=== PATIENT | male | born 1960 | race Caucasian/White ===

== ENCOUNTER 2020-06-26 20:32 | Inpatient (IN) | payer OTHER, SELFPAY ==
[~2020-06-26] VITALS: Ht 188 cm; Wt 101.3 kg
[2020-06-26 20:55] VITALS: Ht 188 cm; Wt 101.3 kg
[2020-06-26 22:08] LABS: BASOPHIL % 0.2 % (0.2-1.5)
[2020-06-26 22:34] LABS: PLATELET COUNT 117 x10^3mcL (152-348)
[2020-06-26 22:39] LABS: CALCIUM 8.1 mg/dL (8.5-10.1); CARBON DIOXIDE 25.1 mmol/L (21-32); CHLORIDE SERUM 98 mmol/L (98-107); CREATININE SERUM 1.2 mg/dL (0.7-1.3); GFR1 > 60 mL/min; GLUCOSE SERUM 127 mg/dL (74-106); POTASSIUM SERUM 4.1 mmol/L (3.5-5.1); SODIUM SERUM 135 mmol/L (136-145)
[2020-06-26 22:58] LABS: rbc morphology (normal/abnorm) ABNORMAL (NORMAL)
[2020-06-26 23:07] LABS: ALKALINE PHOSPHATASE 48 U/L (46-116); ALT/SGPT 41 U/L (16-63); AST/SGOT 47 U/L (15-37); BILIRUBIN TOTAL 0.8 mg/dL (0.20-1.00); C REACTIVE PROTEIN 8.9 mg/dL (<=0.9); LACTIC DEHYDROGENASE (LDH) 310 U/L (100-190); TOTAL PROTEIN, SERUM 7.1 g/dL (6.4-8.2)
[2020-06-26 23:10] LABS: ALBUMIN 3.1 g/dL (3.4-5.0)
[2020-06-27 02:44] LABS: microscopic required? YES; urine erythrocyte NEGATIVE (NEGATIVE)
[2020-06-27 04:58] VITALS: BP 114/73
[2020-06-27 08:46] VITALS: BP 115/73
[2020-06-27 09:08] LABS: BASOPHIL % 0.1 % (0.2-1.5); RED CELL DISTRIBUTION WIDTH 13.2 % (12.1-16.2)
[2020-06-27 09:15] LABS: CALCIUM 8.5 mg/dL (8.5-10.1); CARBON DIOXIDE 28.9 mmol/L (21-32); CHLORIDE SERUM 100 mmol/L (98-107); CREATININE SERUM 1.1 mg/dL (0.7-1.3); GFR1 > 60 mL/min; GLUCOSE SERUM 139 mg/dL (74-106); POTASSIUM SERUM 5.1 mmol/L (3.5-5.1); SODIUM SERUM 138 mmol/L (136-145)
[2020-06-27 11:09] LABS: PLATELET COUNT 115 x10^3mcL (152-348)
[2020-06-27 11:51] VITALS: BP 126/74
[2020-06-27 16:52] VITALS: BP 127/80
[2020-06-27 22:00] VITALS: BP 133/78
[2020-06-28 05:12] VITALS: BP 115/76
[2020-06-28 07:44] LABS: BASOPHIL % 0.2 % (0.2-1.5); PLATELET COUNT 144 x10^3mcL (152-348); RED CELL DISTRIBUTION WIDTH 13.2 % (12.1-16.2)
[2020-06-28 08:05] LABS: CALCIUM 8.2 mg/dL (8.5-10.1); CARBON DIOXIDE 27.1 mmol/L (21-32); CHLORIDE SERUM 103 mmol/L (98-107); CREATININE SERUM 1.1 mg/dL (0.7-1.3); GFR1 > 60 mL/min; GLUCOSE SERUM 124 mg/dL (74-106); MAGNESIUM 2.3 mg/dL (1.8-2.4); POTASSIUM SERUM 4.4 mmol/L (3.5-5.1); SODIUM SERUM 139 mmol/L (136-145)
[2020-06-28 08:34] VITALS: BP 135/79
[2020-06-28 12:19] VITALS: BP 130/78
[2020-06-28 15:59] VITALS: BP 148/76
[2020-06-28 18:58] VITALS: BP 148/76
[2020-06-28 21:00] VITALS: BP 129/79
[2020-06-29 05:02] VITALS: BP 111/70
[2020-06-29 07:48] LABS: BASOPHIL % 0.3 % (0.2-1.5); PLATELET COUNT 169 x10^3mcL (152-348); RED CELL DISTRIBUTION WIDTH 12.8 % (12.1-16.2)
[2020-06-29 08:32] LABS: ALKALINE PHOSPHATASE 58 U/L (46-116); ALT/SGPT 34 U/L (16-63); AST/SGOT 35 U/L (15-37); BILIRUBIN DIRECT 0.15 mg/dL (0.0-0.2); BILIRUBIN TOTAL 0.4 mg/dL (0.20-1.00); CALCIUM 7.9 mg/dL (8.5-10.1); CARBON DIOXIDE 28.9 mmol/L (21-32); CHLORIDE SERUM 106 mmol/L (98-107); GFR1 > 60 mL/min; GLUCOSE SERUM 95 mg/dL (74-106); MAGNESIUM 2.1 mg/dL (1.8-2.4); PHOSPHOROUS 4.1 mg/dL (2.5-4.9); POTASSIUM SERUM 4.3 mmol/L (3.5-5.1); SODIUM SERUM 141 mmol/L (136-145); TOTAL PROTEIN, SERUM 6.4 g/dL (6.4-8.2)
[2020-06-29 08:37] LABS: ALBUMIN 2.4 g/dL (3.4-5.0)
[2020-06-29 09:17] VITALS: BP 121/73
[2020-06-29 12:17] VITALS: BP 137/86
[2020-06-29 17:30] VITALS: BP 129/77
[2020-06-29 20:58] VITALS: BP 109/54
[2020-06-30 05:26] VITALS: BP 124/81
[2020-06-30 06:45] LABS: BASOPHIL % 0.3 % (0.2-1.5); PLATELET COUNT 188 x10^3mcL (152-348); RED CELL DISTRIBUTION WIDTH 12.9 % (12.1-16.2)
[2020-06-30 07:30] LABS: CALCIUM 7.9 mg/dL (8.5-10.1); CARBON DIOXIDE 29.6 mmol/L (21-32); CHLORIDE SERUM 105 mmol/L (98-107); CREATININE SERUM 1.1 mg/dL (0.7-1.3); GFR1 > 60 mL/min; GLUCOSE SERUM 88 mg/dL (74-106); MAGNESIUM 2.1 mg/dL (1.8-2.4); PHOSPHOROUS 3.8 mg/dL (2.5-4.9); POTASSIUM SERUM 4.3 mmol/L (3.5-5.1); SODIUM SERUM 139 mmol/L (136-145)
[2020-06-30 08:35] LABS: ALBUMIN 2.4 g/dL (3.4-5.0); BILIRUBIN DIRECT 0.12 mg/dL (0.0-0.2); BILIRUBIN TOTAL 0.5 mg/dL (0.20-1.00); TOTAL PROTEIN, SERUM 6.3 g/dL (6.4-8.2)
[2020-06-30 09:03] VITALS: BP 132/80
[2020-06-30 12:36] VITALS: BP 133/80
[2020-06-30 12:38] LABS: rbc morphology (normal/abnorm) NORMAL (NORMAL)
[2020-06-30 16:58] VITALS: BP 129/82
[2020-06-30 21:09] VITALS: BP 135/79
[2020-07-01 04:51] VITALS: BP 101/65
[2020-07-01 08:44] VITALS: BP 123/80
[2020-07-01 10:19] LABS: ALBUMIN 2.5 g/dL (3.4-5.0); BILIRUBIN DIRECT 0.13 mg/dL (0.0-0.2); BILIRUBIN TOTAL 0.6 mg/dL (0.20-1.00); TOTAL PROTEIN, SERUM 6.4 g/dL (6.4-8.2)
[2020-07-01 10:36] LABS: CARBON DIOXIDE 26.4 mmol/L (21-32); CHLORIDE SERUM 104 mmol/L (98-107); CREATININE SERUM 1.1 mg/dL (0.7-1.3); GFR1 > 60 mL/min; GLUCOSE SERUM 89 mg/dL (74-106); MAGNESIUM 2.1 mg/dL (1.8-2.4); PHOSPHOROUS 3.4 mg/dL (2.5-4.9); POTASSIUM SERUM 4.2 mmol/L (3.5-5.1); SODIUM SERUM 139 mmol/L (136-145)
[2020-07-01 12:01] VITALS: BP 114/69
[2020-07-01 14:35] LABS: BASOPHIL % 0.8 % (0.2-1.5); PLATELET COUNT 204 x10^3mcL (152-348)
[2020-07-01 14:45] LABS: rbc morphology (normal/abnorm) NORMAL (NORMAL)
[2020-07-01 16:41] VITALS: BP 119/81
[2020-07-01 21:20] VITALS: BP 115/70
[2020-07-02 05:42] VITALS: BP 119/72
[2020-07-02 09:17] VITALS: BP 113/65
[2020-07-02 09:17] LABS: CALCIUM 8.5 mg/dL (8.5-10.1); CARBON DIOXIDE 27.6 mmol/L (21-32); CHLORIDE SERUM 103 mmol/L (98-107); CREATININE SERUM 1.1 mg/dL (0.7-1.3); GFR1 > 60 mL/min; GLUCOSE SERUM 85 mg/dL (74-106); MAGNESIUM 2.1 mg/dL (1.8-2.4); PHOSPHOROUS 3.2 mg/dL (2.5-4.9); POTASSIUM SERUM 4.2 mmol/L (3.5-5.1); SODIUM SERUM 138 mmol/L (136-145)
[2020-07-02 10:27] LABS: BILIRUBIN DIRECT 0.12 mg/dL (0.0-0.2); BILIRUBIN TOTAL 0.68 mg/dL (0.20-1.00); TOTAL PROTEIN, SERUM 6.5 g/dL (6.4-8.2)
[2020-07-02 10:29] LABS: ALBUMIN 2.5 g/dL (3.4-5.0)
[2020-07-02 11:38] LABS: BASOPHIL % 0.2 % (0.2-1.5); PLATELET COUNT 208 x10^3mcL (152-348); RED CELL DISTRIBUTION WIDTH 12.8 % (12.1-16.2)
[2020-07-02 13:42] VITALS: BP 116/71
[2020-07-02 17:37] VITALS: BP 124/77
[2020-07-02 22:00] VITALS: BP 121/76
[2020-07-03 06:19] VITALS: BP 123/83
[2020-07-03 07:58] LABS: BASOPHIL % 0.5 % (0.2-1.5); PLATELET COUNT 215 x10^3mcL (152-348); RED CELL DISTRIBUTION WIDTH 13.1 % (12.1-16.2)
[2020-07-03 08:23] LABS: C REACTIVE PROTEIN 2.7 mg/dL (<=0.9); CARBON DIOXIDE 31.5 mmol/L (21-32); CHLORIDE SERUM 104 mmol/L (98-107); CREATININE SERUM 1.1 mg/dL (0.7-1.3); GFR1 > 60 mL/min; GLUCOSE SERUM 91 mg/dL (74-106); MAGNESIUM 2.1 mg/dL (1.8-2.4); POTASSIUM SERUM 4.7 mmol/L (3.5-5.1); SODIUM SERUM 138 mmol/L (136-145)
[2020-07-03 12:37] VITALS: BP 124/73
[2020-07-03] MEDS ORDERED: DECADRON6 MG PO (13:11)
[2020-07-03] MEDS ORDERED: ELIQUIS2.5 MG PO (13:12)
[2020-07-03 20:42] VITALS: BP 101/67
[2020-07-04 05:46] VITALS: BP 124/70
[2020-07-04 06:39] LABS: BASOPHIL % 0.4 % (0.2-1.5); PLATELET COUNT 226 x10^3mcL (152-348); RED CELL DISTRIBUTION WIDTH 13.1 % (12.1-16.2)
[2020-07-04 06:43] LABS: CALCIUM 8.1 mg/dL (8.5-10.1); CARBON DIOXIDE 31.2 mmol/L (21-32); CHLORIDE SERUM 106 mmol/L (98-107); CREATININE SERUM 1.1 mg/dL (0.7-1.3); GFR1 > 60 mL/min; GLUCOSE SERUM 97 mg/dL (74-106); MAGNESIUM 2.1 mg/dL (1.8-2.4); PHOSPHOROUS 3.8 mg/dL (2.5-4.9); POTASSIUM SERUM 4.9 mmol/L (3.5-5.1); SODIUM SERUM 140 mmol/L (136-145)
[2020-07-04 08:39] VITALS: BP 121/77
[2020-07-04 12:32] VITALS: BP 123/69
[2020-07-04 13:57] VITALS: BP 123/69
[2020-07-04] MEDS ORDERED: ELIQUIS2.5 MG PO (15:45)
[2020-07-04] MEDS ORDERED: DECADRON6 MG PO (15:45)
== END 2020-07-04 16:35 | disposition home or self-care (01) | DRG 720 ==
LOC: ED 20:32 → DU 23:07
PROVIDERS: Family Medicine; Specialist; ADMIT Internal Medicine; ATTEND Internal Medicine
PROC: XW033E5 Introduction of Remdesivir Anti-infective into Peripheral Vein, Percutaneous Approach, New Technology Group 5 (ICD-10-PCS; principal; 2020-06-28)
DX: A41.89 Other specified sepsis (principal); U07.1 COVID-19; J96.01 Acute respiratory failure with hypoxia; J12.82 Pneumonia due to coronavirus disease 2019; E87.1 Hypo-osmolality and hyponatremia; E83.51 Hypocalcemia; R73.9 Hyperglycemia, unspecified
CPT/HCPCS: 36600; 83880; 85378; 87804; G0378; J0456; J0696; J1100; J1644; J1650; J7030; J7040; J7050; J7060; U0003